=== PATIENT | male | born 1985 | race American Indian/Alaskan Native ===

== ENCOUNTER 2018-01-26 21:14 | Emergency (ER) | payer SELFPAY ==
[2018-01-26 21:22] VITALS: BP 123/74
--- NOTE | 2018-01-26 21:28 | Emergency Department Report ---
HPI - General Chief Complaint: Dental/Oral Time Seen by Provider: 01/26/18 21:27 - HPI HPI: Patient reports toothache to the right upper and lower tooth. He reports that he's been having toothache on and off and his pain is 10 out of 10 achy and worse with eating and an open is mild. He states that he is taking over-the- counter medication without any relief. Patient does not have a dentist. Denies any fever or chills. Denies any cough, nasal congestion. Denies any sinus pain or pressure. Patient said he has dental cavities and he does not have a dentist. Denies any cough or shortness of breath. ED Past Medical Hx - Past Medical History Previous Medical History?: No - Surgical History Past Surgical History?: No - Family History Family history: no significant - Social History Smoking Status: Never Smoker Substance Use Type: None, Marijuana - Medications Home Medications: Home Medications Medication Instructions Recorded Confirmed Last Taken Type Acetaminophen/Codeine [Tylenol 1 tab PO Q6H PRN #12 tab 01/26/18 Unknown Rx /Codeine # 3 tab] Ibuprofen [Motrin] 600 mg PO Q8H PRN #15 tablet 01/26/18 Unknown Rx Penicillin V Potassium 500 mg PO Q8H 10 Days #30 tablet 01/26/18 Unknown Rx ED Review of Systems ROS: Stated complaint: MEDICAL CLEARANCE Other details as noted in HPI Comment: All other systems reviewed and negative Constitutional: no symptoms reported ENT: dental pain. denies: ear pain, throat pain, congestion Respiratory: no symptoms reported Cardiovascular: denies: chest pain, palpitations, dyspnea on exertion, edema, syncope, paroxysmal nocturnal dyspnea Gastrointestinal: denies: nausea, vomiting Musculoskeletal: denies: back pain, joint swelling, arthralgia, myalgia Skin: denies: rash Neurological: denies: headache, weakness, numbness, paresthesias, confusion, abnormal gait, vertigo Physical Exam - Physical Exam Vital Signs: Vital Signs 01/26/18 21:20 Temperature 98.5 F Pulse Rate 75 Respiratory 18 Rate Blood Pressure 123/74 O2 Sat by Pulse 99 Oximetry General: 32-year-old male well-nourished well-developed in no acute distress. Physical Exam: Head: Normocephalic, atraumatic, no abrasion, no bruising and no contusion. Eyes: Biateral pupils equal and reactive to light, bilateral EOM intact.. Bilateral conjunctival and sclera without injection, normal accommodation. Mouth: Moist, no pharyngeal exudate or erythema. No peritonsillar abscesses. Uvula is midline and oral airways patent. Patient with dental cavities and noted tenderness around tooth #1 and 32. No pulp exposure. Mild gingival inflammation. Tongue is normal. No abscess seen. Ears: Bilateral TM normal/pearly hodges. Bilateral EAC without any redness swelling or drainage. No mastoid bone tenderness Nose: Bilateral nasal mucosa normal. Maxillary and frontal sinuses tender to palpate. Neck: Supple, No Cervical adenopathy, full range of motion and no C-spine tenderness. No swelling or tracheal deviation normal reflexes Cardiovascular: S1, S2. Regular rate and rhythm. No murmur. Capillary refill is less then 3 seconds. Lungs: Clear to auscultate bilaterally. No rhonchi, wheezes or rales. No chest wall tenderness. No chest contusion. No bruising to chest. Extremities: No clubbing, cyanosis or edema. +2 pulses. No neurovascular compromise Skin: Clean, dry and intact. No rash or lesions. Psych: Normal mood and behavior ED Course Vital Signs 01/26/18 21:20 Temperature 98.5 F Pulse Rate 75 Respiratory 18 Rate Blood Pressure 123/74 O2 Sat by Pulse 99 Oximetry - Reevaluation(s) Reevaluation #1: 01/26/18 22:09 Patient given Motrin 800 mg when necessary emergency room for ED Medical Decision Making - Medical Decision Making ED course:Pt Here complaining of toothache with dental cavities and not having a dentist to follow-up with. He said he's been taking [id number] medication without any relief of pain. Physical findings for dental cavities and tenderness to palpate around tooth #1 and 32. Patient with gingivitis. I discussed patient with diagnosis and treatment plan. He was given Motrin 800 mg emergency room. He voiced understanding in a discharge instruction, treatment plan and need to follow-up with dentist. Referral given for [facility] dental clinic and he was given a prescription for Tylenol 3, Motrin and penicillin V. Critical care attestation.: If time is entered above; I have spent that time in minutes in the direct care of this critically ill patient, excluding procedure time. ED Disposition Clinical Impression: Dental caries, Gingivitis, Toothache Disposition: DC-01 TO HOME OR SELFCARE Is pt being admited?: No Does the pt Need Aspirin: No Condition: Stable Instructions: Dental Caries (ED), Gingivitis (ED), Toothache (ED) Additional Instructions: Please follow up at [facility] dental clinic in 2-3 days. Call number and discharge instruction paperwork to schedule an appointment Take penicillin V as prescribed for gingivitis. Please do not drive or operate heavy machinery while taking Tylenol No. 3 as this medication causes drowsiness Floss twice a day and gargle with Listerine mouthwash to reduce gingivitis. Prescriptions: Acetaminophen/Codeine [Tylenol /Codeine # 3 tab] 1 tab PO Q6H PRN #12 tab PRN Reason: Toothache Ibuprofen [Motrin] 600 mg PO Q8H PRN #15 tablet PRN Reason: Pain Penicillin V Potassium 500 mg PO Q8H 10 Days #30 tablet Referrals: [facility] [Outside] - 3-5 Days [facility] [Outside] - 2-3 Days Forms: Work/School Release Form(ED)
[2018-01-26] MEDS ORDERED: MOTRIN PO ONE (22:03)
== END 2018-01-26 22:24 | disposition home or self-care (01) ==
LOC: ED 21:14
DX: K02.9 Dental caries, unspecified (principal); K05.10 Chronic gingivitis, plaque induced; F12.10 Cannabis abuse, uncomplicated
CPT/HCPCS: 99282

== ENCOUNTER 2020-09-05 17:34 | Emergency (ER) | payer SELFPAY ==
--- NOTE | 2020-09-05 17:40 | Emergency Department Report ---
ED ENT HPI - General Stated complaint: TOOTHACHE Time Seen by Provider: 09/05/20 17:36 - History of Present Illness Initial comments: This is a 34-year-old male nontoxic well in appearance with no signs of distress presents to the ED with complaint of toothache. Patient denies any facial swelling. Denies following up with a dentist. Denies any fever, chills, headache, nausea, vomiting, chest pain or SOB. Denies any other complaints. Denies any allergies. MD complaint: tooth pain -: days(s) Location: tooth # 1 - pain here Severity: mild Severity scale (0 -10): 8 Quality: aching Consistency: constant Improves with: none Worsens with: none Context- Dental: history of dental caries, poor dental care Associated Symptoms: gum swelling, toothache. denies: fever, cough, pain with swallowing, sore throat, tinnitus, hearing loss, discharge from ear, rhinorrhea - Related Data Previous Rx's Medication Instructions Recorded Last Taken Type Acetaminophen/Codeine [Tylenol 1 tab PO Q6H PRN #12 tab 01/26/18 Unknown Rx /Codeine # 3 tab] Ibuprofen [Motrin] 600 mg PO Q8H PRN #15 tablet 01/26/18 Unknown Rx Penicillin V Potassium 500 mg PO Q8H 10 Days #30 tablet 01/26/18 Unknown Rx Amoxicillin [Amoxicillin TAB] 875 mg PO BID #20 tablet 09/05/20 Unknown Rx Chlorhexidine Mouthwash [Peridex] 15 ml MM BID #1 bottle 09/05/20 Unknown Rx Allergies Allergy/AdvReac Type Severity Reaction Status Date / Time No Known Allergies Allergy Unverified 06/08/16 12:50 ED Dental HPI - General Stated complaint: TOOTHACHE Time Seen by Provider: 09/05/20 17:36 - Related Data Previous Rx's Medication Instructions Recorded Last Taken Type Acetaminophen/Codeine [Tylenol 1 tab PO Q6H PRN #12 tab 01/26/18 Unknown Rx /Codeine # 3 tab] Ibuprofen [Motrin] 600 mg PO Q8H PRN #15 tablet 01/26/18 Unknown Rx Penicillin V Potassium 500 mg PO Q8H 10 Days #30 tablet 01/26/18 Unknown Rx Amoxicillin [Amoxicillin TAB] 875 mg PO BID #20 tablet 09/05/20 Unknown Rx Chlorhexidine Mouthwash [Peridex] 15 ml MM BID #1 bottle 09/05/20 Unknown Rx Allergies Allergy/AdvReac Type Severity Reaction Status Date / Time No Known Allergies Allergy Unverified 06/08/16 12:50 ED Review of Systems ROS: Stated complaint: TOOTHACHE Other details as noted in HPI Constitutional: denies: chills, fever Eyes: denies: eye pain, eye discharge, vision change ENT: dental pain. denies: ear pain, throat pain Respiratory: denies: cough, shortness of breath, wheezing Cardiovascular: denies: chest pain, palpitations Endocrine: no symptoms reported Gastrointestinal: denies: abdominal pain, nausea, diarrhea Genitourinary: denies: urgency, dysuria Musculoskeletal: denies: back pain, joint swelling, arthralgia Skin: denies: rash, lesions Neurological: denies: headache, weakness, paresthesias Psychiatric: denies: anxiety, depression Hematological/Lymphatic: denies: easy bleeding, easy bruising ED Past Medical Hx - Social History Smoking Status: Never Smoker Substance Use Type: None, Marijuana - Medications Home Medications: Home Medications Medication Instructions Recorded Confirmed Last Taken Type Acetaminophen/Codeine [Tylenol 1 tab PO Q6H PRN #12 tab 01/26/18 Unknown Rx /Codeine # 3 tab] Ibuprofen [Motrin] 600 mg PO Q8H PRN #15 tablet 01/26/18 Unknown Rx Penicillin V Potassium 500 mg PO Q8H 10 Days #30 tablet 01/26/18 Unknown Rx Amoxicillin [Amoxicillin TAB] 875 mg PO BID #20 tablet 09/05/20 Unknown Rx Chlorhexidine Mouthwash [Peridex] 15 ml MM BID #1 bottle 09/05/20 Unknown Rx ED Physical Exam - General General appearance: alert, in no apparent distress - Head Head exam: Present: atraumatic, normocephalic - Eye Eye exam: Present: normal appearance - Expanded ENT Exam Expanded Ear exam: Present: normal external inspection Mouth exam: Present: normal external inspection. Absent: drooling, trismus, muffled voice Teeth exam: Present: dental caries, fractured tooth #, dental tenderness #, gingival enlargement, other (no facial swelling. no abscess) Throat exam: Positive: normal inspection, other (uvula midline). Negative: tonsillar erythema, tonsillomegaly, tonsillar exudate, R peritonsillar mass, L peritonsillar mass - Neck Neck exam: Present: normal inspection, full ROM. Absent: tenderness, meningismus, lymphadenopathy - Respiratory Respiratory exam: Absent: respiratory distress - Cardiovascular Cardiovascular Exam: Present: regular rate - Extremities Exam Extremities exam: Present: full ROM - Back Exam Back exam: Present: full ROM - Neurological Exam Neurological exam: Present: alert, oriented X3, normal gait - Psychiatric Psychiatric exam: Present: normal affect, normal mood - Skin Skin exam: Present: warm, dry, intact, normal color. Absent: rash ED Course Vital Signs 09/05/20 17:37 Temperature 98.5 F Pulse Rate 58 L Respiratory 18 Rate Blood Pressure 121/82 O2 Sat by Pulse 99 Oximetry - Reevaluation(s) Reevaluation #1: 09/05/20 17:38 Patient is speaking in full sentences with no signs of distress noted. ED Medical Decision Making - Medical Decision Making Patient was instructed to Follow-up with a dentist doctor in 3-5 days or if symptoms worsen and continue return to emergency room as soon as possible. At time of discharge, the patient does not seem toxic or ill in appearance. No acute signs of distress noted. Patient agrees to discharge treatment plan of care. No further questions noted by the patient. Critical care attestation.: If time is entered above; I have spent that time in minutes in the direct care of this critically ill patient, excluding procedure time. ED Disposition Clinical Impression: Dental caries, Gingivitis Disposition: DC- TO HOME OR SELFCARE Is pt being admited?: No Does the pt Need Aspirin: No Condition: Stable Instructions: Dental Caries (ED), Gingivitis (ED) Additional Instructions: Follow-up with a dentist doctor in 3-5 days or if symptoms worsen and continue return to emergency room as soon as possible. Prescriptions: Amoxicillin [Amoxicillin TAB] 875 mg PO BID #20 tablet Chlorhexidine Mouthwash [Peridex] 15 ml MM BID #1 bottle Referrals: [facility] [Referring] - 3-5 Days FELICIA MEDEIROS MD [Staff Physician] - 3-5 Days [facility] [Outside] - 3-5 Days
[2020-09-05 17:41] VITALS: BP 121/82
== END 2020-09-05 19:59 | disposition home or self-care (01) ==
LOC: ED 17:34
DX: K02.9 Dental caries, unspecified (principal); K05.10 Chronic gingivitis, plaque induced; F12.90 Cannabis use, unspecified, uncomplicated; Z79.899 Other long term (current) drug therapy
CPT/HCPCS: 99282